=== PATIENT | female | born 1940 | race Caucasian/White ===

== ENCOUNTER → 2017-01-27 | Outpatient (CLI) | payer MEDICARE, MEDICAID ==
--- NOTE | 2017-01-27 13:34 | REP ---
RIGHT LOWER EXTREMITY DUPLEX DOPPLER VENOUS ULTRASOUND WITH EVALUATION FOR VENOUS REFLUX: Real-time compression and duplex Doppler interrogation of the right lower extremity deep venous system is performed. Right common femoral, superficial femoral and popliteal veins are fully compressible with transducer pressure and demonstrate normal spontaneous and phasic flow without evidence of deep venous thrombosis. Evaluation for venous reflux is performed. Reflux is seen in the right common femoral vein and proximal femoral vein. There is no reflux in the distal femoral vein or popliteal vein. There is an anterior accessory greater saphenous vein present without reflux. There is reflux in the greater saphenous vein at the saphenofemoral junction for duration of 1.1 seconds, AP diameter 5 mm. No reflux is seen in the greater saphenous vein at the mid thigh, which measures 5 mm, nor in the greater saphenous vein at the knee, which also measures 5 mm in diameter. No reflux is seen in the lesser saphenous vein which measures 4 mm. The anterior accessory greater saphenous vein travels down to the distal aspect of the thigh. A small collateral vessel is seen at the patient's ulcer communicating with the greater saphenous vein. The collateral vessel demonstrates no evidence of reflux. Signed by Rohan Zarate MD 01/27/2017 04:07 P
== END ==
LOC: M RAD 10:39
PROVIDERS: ATTEND Surgery
DX: I87.311 Chronic venous hypertension (idiopathic) with ulcer of right lower extremity (principal)